=== PATIENT | female | born 1950 ===

== ENCOUNTER 2018-01-29 16:51 | Emergency (ER) | payer MEDICARE, MEDICAID ==
[2018-01-29 17:08] VITALS: BMI 37.8
[2018-01-29 17:09] VITALS: RESP 18; O2SAT 100
--- NOTE | 2018-01-29 17:15 | C.PDOC ---
History Of Present Illness 67 year old female presents to the ED for evaluation of diffuse abdominal pain for 3 days. Patient reports she feels she needs to have a bowel movement but is not able to. She has not had a bowel movement in 4 days. Admits to taking Miralax with no improvement. Denies fever, nausea, vomiting, diarrhea, chest pain, sob, syncope, urinary changes/frequency, dysuria, and any other associated symptoms. Son at bedside for translation. <Lydia Orona - Last Filed: 01/29/18 19:25> History Per: Patient History/Exam Limitations: no limitations Onset/Duration Of Symptoms: Days Current Symptoms Are (Timing): Still Present <Lydia Orona - Last Filed: 01/29/18 19:25> <Myra Membreno - Last Filed: 01/29/18 21:55> Time Seen by Provider: 01/29/18 17:15 Chief Complaint (Nursing): Abdominal Pain Past Medical History Reviewed: Historical Data, Nursing Documentation, Vital Signs Vital Signs: Last Vital Signs Temp 98.3 F 01/29/18 17:08 Pulse 56 L 01/29/18 17:08 Resp 18 01/29/18 17:08 BP 144/78 01/29/18 17:08 Pulse Ox 100 01/29/18 17:08 - Medical History PMH: Anxiety, Arthritis (R KNEE), Cardia Arrhythmia, Depression, Gastritis, HTN, Hypercholesterolemia, TIA Denies: Chronic Kidney Disease Surgical History: Cholecystectomy, Endoscopy - [facility] Procedures CORONAR ARTERIOGR-2 CATH (10/26/14) LT HEART ANGIOCARDIOGRAM (10/26/14) REPLACE OF R KNEE JT WITH SYNTH SUB, CEMENT, OPEN APPROACH (06/08/15) REVISION OR RELOCATION OF CARDIAC DEVICE POCKET (11/01/14) RT/LEFT HEART CARD CATH (10/26/14) Family History: States: Unknown Family Hx - Social History Hx Alcohol Use: No Hx Substance Use: No - Immunization History Hx Tetanus Toxoid Vaccination: Yes Hx Influenza Vaccination: Yes Hx Pneumococcal Vaccination: Yes <Lydia Orona - Last Filed: 01/29/18 19:25> Vital Signs: Last Vital Signs Temp 97.9 F 01/29/18 19:48 Pulse 61 01/29/18 19:48 Resp 18 01/29/18 19:48 BP 137/84 01/29/18 19:48 Pulse Ox 100 01/29/18 19:48 - [facility] Procedures CORONAR ARTERIOGR-2 CATH (10/26/14) LT HEART ANGIOCARDIOGRAM (10/26/14) REPLACE OF R KNEE JT WITH SYNTH SUB, CEMENT, OPEN APPROACH (06/08/15) REVISION OR RELOCATION OF CARDIAC DEVICE POCKET (11/01/14) RT/LEFT HEART CARD CATH (10/26/14) <Myra Membreno - Last Filed: 01/29/18 21:55> Review Of Systems Except As Marked, All Systems Reviewed And Found Negative. Constitutional: Negative for: Fever Gastrointestinal: Positive for: Abdominal Pain (diffuse.), Constipation (no bowel movement in 4 days. ). Negative for: Nausea, Vomiting, Diarrhea Genitourinary: Negative for: Dysuria, Frequency, Incontinence, Other (urinary changes.) <Lydia Orona - Last Filed: 01/29/18 19:25> Physical Exam - Physical Exam Appears: Well, Non-toxic, No Acute Distress Skin: Normal Color, Warm, Dry Head: Atraumatic, Normacephalic Eye(s): bilateral: Normal Inspection, EOMI Nose: Normal Oral Mucosa: Moist Neck: Normal ROM, Supple Chest: Symmetrical, No Deformity Cardiovascular: Rhythm Regular Respiratory: Normal Breath Sounds, No Rales, No Rhonchi, No Wheezing Gastrointestinal/Abdominal: Soft, Tenderness (diffuse.), No Distention, No Rebound, Other (obese) Back: No CVA Tenderness, No Vertebral Tenderness Neurological/Psych: Oriented x3, Normal Speech <Lyida Orona - Last Filed: 01/29/18 19:25> ED Course And Treatment - Laboratory Results Result Diagrams: 01/29/18 17:47 01/29/18 17:47 O2 Sat by Pulse Oximetry: 100 (RA) Pulse Ox Interpretation: Normal - Other Rad Obs XR X-Ray: Interpreted by Me, Viewed By Me Interpretation: (+) FOS , (-) air fluid levels Progress Note: Plan: Blood sent. X-ray Obstructive series. Urinalysis. XR evaluated, fleet enema and mag citrate ordered. Case endorsed to Dr Membreno pending re-evaluation. <Lydia Orona - Last Filed: 01/29/18 19:25> - Laboratory Results Result Diagrams: 01/29/18 17:47 01/29/18 17:47 Reevaluation Time: 21:50 Reassessment Condition: Improved (21:50 Patient had a bowel movement and feels better. Plan d/c home to f/u w/pcp. Patient agreeable w/POC.) <Myra Membreno - Last Filed: 01/29/18 21:55> Disposition - Disposition Disposition Time: 19:24 <BettyehuntercesarLydia - Last Filed: 01/29/18 19:25> Counseled Patient/Family Regarding: Studies Performed, Diagnosis, Need For Followup - Disposition Disposition Time: 21:53 - POA Present On Arrival: None <Myra Membreno - Last Filed: 01/29/18 21:55> - Disposition Disposition: HOME/ ROUTINE Condition: STABLE Additional Instructions: EMILY GERONIMO, thank you for letting us take care of you today. Your provider was Myra Membreno MD and you were treated for ABD PAIN. The emergency medical care you received today was directed at your acute symptoms. If you were prescribed any medication, please fill it and take as directed. It may take several days for your symptoms to resolve. Return to the Emergency Department if your symptoms worsen, do not improve, or if you have any other problems. Please contact your doctor or call one of the physicians/clinics you have been referred to that are listed on the Patient Visit Information form that is included in your discharge packet. Bring any paperwork you were given at discharge with you along with any medications you are taking to your follow up visit. Our treatment cannot replace ongoing medical care by a primary care provider outside of the emergency department. Thank you for allowing the [facility] team to be part of your care today. Instructions: Constipation, Adult (DC) Forms: [employer] (Rwandan), Gen Discharge Inst Rwandan Print Language: KISWAHILI - Clinical Impression Clinical Impression: Constipation - PA / INSPECTOR MISSILE / Resident Statement MD/DO has reviewed & agrees with the documentation as recorded. - Scribe Statement The provider has reviewed the documentation as recorded by the Scribe (Daly Marlow) All medical record entries made by the Scribe were at my direction and personally dictated by me. I have reviewed the chart and agree that the record accurately reflects my personal performance of the history, physical exam, medical decision making, and the department course for this patient. I have also personally directed, reviewed, and agree with the discharge instructions and disposition. <Lydia Orona - Last Filed: 01/29/18 19:25>
[2018-01-29 17:51] LABS: BASO % 0.6 % (0.0-2.0); EOS # 0.1 K/uL (0.0-0.7); EOS % 1.2 % (0.0-4.0); HEMOGLOBIN 13.3 g/dL (11.0-16.0); LYMPH # 1.7 K/uL (1.0-4.3); LYMPH % 25.4 % (20.0-40.0); MEAN CELL VOLUME 89.8 fL (81.0-99.0); MEAN CORPUSCULAR HEMOGLOBIN 29.9 pg (27.0-31.0); MEAN CORPUSCULAR HGB CONC 33.3 g/dL (33.0-37.0); MEAN PLATELET VOLUME 8.2 fL (7.2-11.7); MONO # 0.5 K/uL (0.0-0.8); MONO % 7.4 % (0.0-10.0); NEUT # 4.4 K/uL (1.8-7.0); NEUT % 65.4 % (50.0-75.0); NRBC % 0.1 % (0.0-2.0); RBC 4.46 Mil/uL (3.80-5.20); RED CELL DISTRIBUTION WIDTH 14.7 % (11.5-14.5); WHITE BLOOD COUNT 6.8 K/uL (4.8-10.8)
[2018-01-29] MEDS ORDERED: Magnesium Citrate Oral SOL (300 ml) PO ONE (18:07)
[2018-01-29 18:12] LABS: SQUAMOUS EPITHIAL < 1 /hpf (0-5); URINE BILIRUBIN NEGATIVE (NEGATIVE); URINE BLOOD NEGATIVE (NEGATIVE); URINE CLARITY Clear (Clear); URINE COLOR Yellow (YELLOW); URINE GLUCOSE (UA) 3+ mg/dL (Normal); URINE HYALINE CAST 0-2 /lpf (0-2); URINE LEUKOCYTE ESTERASE NEG Leu/uL (Negative); URINE PROTEIN 1+ mg/dL (NEGATIVE); URINE UROBILINOGEN NORMAL mg/dL (0.2-1.0)
[2018-01-29 18:14] LABS: ALB/GLOB RATIO 1.3 (1.0-2.1); ALBUMIN 4.2 g/dL (3.5-5.0); ALT/SGPT 19 U/L (9-52); AST/SGOT 20 U/L (14-36); BLOOD UREA NITROGEN 15 mg/dL (7-17); CALCIUM 8.8 mg/dl (8.6-10.4); GFR NON-AFRICAN AMERICAN > 60
[2018-01-29] MEDS ORDERED: Magnesium Citrate Oral SOL (300 ml) ONE (18:25)
[2018-01-29 22:13] VITALS: BP 150/85; PULSE 69; TEMP 98.7
--- NOTE | 2018-01-30 08:31 | RAD ---
Date of service: 01/29/2018 PROCEDURE: Radiographs of the chest and abdomen (obstructive series) HISTORY: pain COMPARISON: No prior. TECHNIQUE: AP radiograph of the chest, with upright and supine radiographs of the abdomen. FINDINGS: CHEST: Lungs: Clear. Cardiovascular: Cardiomegaly. No significant appearing pulmonary venous congestion. There is presence of aortic atherosclerotic calcification on x-ray. Pleura: No pleural fluid. No pneumothorax. Other findings: Cardiac monitoring device in place. ABDOMEN AND PELVIS: Bowel: Stool retention. No bowel obstruction appreciated. Right upper quadrant cholecystectomy clips Free air: None. Bones: Unremarkable. Other findings: None. IMPRESSION: No infiltrate. Stool retention. No bowel obstruction appreciated. Other findings as above.
== END 2018-01-29 22:14 | disposition home or self-care (01) ==
LOC: C.ER 16:51
DX: K59.00 Constipation, unspecified (principal)

== ENCOUNTER 2018-03-14 08:27 | Observation (INO) | payer MEDICARE, MEDICAID ==
[2018-03-04 11:44] VITALS: BMI 36.3
[2018-03-14] MEDS ORDERED: Propofol 10 mg/ml Inj (20 ML) ONE (10:04)
[2018-03-14] MEDS ORDERED: Lidocaine Hydrochloride 5 ML INJ ONE (10:04)
[2018-03-14] MEDS ORDERED: Midazolam 2 MG/2 ML VIAL ONE (10:04)
[2018-03-14] MEDS ORDERED: Iohexol 240 (50 ml) ONE (10:16)
[2018-03-14] MEDS ORDERED: cefTRIAXone 1 gm 1 GM/100 ML BAG IVPB ONE (10:16)
[2018-03-14] MEDS ORDERED: Lidocaine 2% Jelly (Uro-Jet) ONE (10:34)
--- NOTE | 2018-03-14 12:08 | PCM.SURG1 ---
Surgeon's Initial Post Op Note - Surgeon's Notes Surgeon: Mario Oseguera Corporate [employer] Intern: none Type of Anesthesia: General LMA Pre-Operative Diagnosis: Bladder mass Operative Findings: Multiple bladder tumors Post-Operative Diagnosis: Bladder cancer Operation Performed: cysto. bilat rtg pyelogram. cystogram. TUR-Bladder tumors. Tur-BN. EUA Specimen/Specimens Removed: urine. Bladder bx's/tumor Estimated Blood Loss: EBL {In ML}: 10 Blood Products Given: N/A Post-Op Condition: Good Date of Surgery/Procedure: 03/14/18 Time of Surgery/Procedure: 11:35
[2018-03-14] MEDS ORDERED: Lactated Ringer's 1,000 ML IV ONE (13:00)
[2018-03-14] MEDS ORDERED: Morphine 4 MG/ML VIAL ONE (13:17)
--- NOTE | 2018-03-14 13:24 | RAD ---
Date of service: 03/14/2018 HISTORY: BLADDER TUMOR COMPARISON: None available. FINDINGS: BOWEL: There is moderate amount of stool in the colon. The bowel gas pattern is nonobstructive BONES: Within normal limits for the patient's age. OTHER FINDINGS: None. IMPRESSION: Constipation. Nonspecific nonobstructive bowel gas pattern
--- NOTE | 2018-03-14 13:54 | CP.PCM.CON ---
History of Present Illness - History of Present Illness History of Present Illness: PGY-1 History and Physical for Dr. August's service Patient is a 67 year old obese female with past medical history of HTN, HLD, DM type II, CAD s/p SD presenting s/p transurethral resection of bladder tumor, cystoscopy b/l retrograde with cystogram under fluroscopy, bladder biopsy. Patient complained of diffuse abdominal pain/ constipation prior to arrival for multiple days, had CT abdomen/pelvis performed at another hospital that demonstrated bladder tumor. Currently, patient endorses mild lower abdominal/suprapubic tenderness as well as burning sensation to pubic area rated 6/10. No other acute somatic complaints. Denies fevers/chills, headaches, dizziness, chest pain, palpitations, sob, cough, abdominal pain, n/v/d/c, dysuria, or changes in stool. PMHx: HTN, HLD, DM type II, CAD s/p SD (2015) PSHx: loop recorder, cardiac cath, R TKA (05/2015), cholecystectomy, Allergies: NKDA Home Medications: reviewed ([facility]) Social Hx: denies alcohol, tobacco, illicit drug use FHx: unknown Review of Systems - Review of Systems All systems: reviewed and no additional remarkable complaints except Review of Systems: as per HPI Past Patient History - Past Medical History & Family History Past Medical History?: Yes - Past Social History Smoking Status: Never Smoked - CARDIAC Hx Cardiac Disorders: Yes Hx Cardia Arrhythmia: Yes Hx Heart Attack: Yes Hx Hypercholesterolemia: Yes Hx Hypertension: Yes Other/Comment: HX: LOOP RECORDER - NEUROLOGICAL Hx Neurological Disorder: Yes Hx Dizziness: Yes Hx Transient Ischemic Attacks (TIA): Yes Other/Comment: states mild memory problems pt. is AAOX3 - HEENT Hx HEENT Problems: Yes Hx Cataracts: Yes - ENDOCRINE/METABOLIC Hx Endocrine Disorders: Yes Hx Diabetes Mellitus Type 2: Yes - INTEGUMENTARY Hx Dermatological Problems: Yes Hx Romo: Yes (2014 OR 2015?-RIGHT BREAST FROM HOT WATER-NO SURGERY) - MUSCULOSKELETAL/RHEUMATOLOGICAL Hx Musculoskeletal Disorders: Yes Hx Arthritis: Yes (R KNEE) Hx Back Pain: Yes (LUMBAR) - GASTROINTESTINAL Hx Gastrointestinal Disorders: Yes Hx Gastritis: Yes Hx Gastroesophageal Reflux: Yes Other/Comment: chronic constipation - GENITOURINARY/GYNECOLOGICAL Hx Genitourinary Disorders: Yes Hx Urinary Tract Infection: Yes (TREATED REPEAT U/C 3 02/07) - PSYCHIATRIC Hx Psychophysiologic Disorder: Yes Hx Anxiety: Yes Hx Depression: Yes Hx Panic Symptoms: Yes - SURGICAL HISTORY Hx Surgeries: Yes Hx Angioplasty: Yes Hx Cardiac Catheterization: Yes Hx Section: Yes Hx Cholecystectomy: Yes Hx Joint Replacement: Yes (RIGHT KNEE) Hx Orthopedic Surgery: Yes (right knee) Other/Comment: HX: LOOP RECORDER - ANESTHESIA Hx Anesthesia: Yes Hx Anesthesia Reactions: No Hx Malignant Hyperthermia: No Meds Allergies/Adverse Reactions: Allergies Allergy/AdvReac Type Severity Reaction Status Date / Time shrimp Allergy Unknown "UNKNOWN" Verified 03/04/18 12:34 - Medications Medications: Current Medications Lactated Ringer's (Lactated Ringer's) 1,000 mls @ 100 mls/hr IV .Q10H CORTNEY Physical Exam - Constitutional Appears: Non-toxic, No Acute Distress - Head Exam Head Exam: ATRAUMATIC, NORMAL INSPECTION, NORMOCEPHALIC - Eye Exam Eye Exam: EOMI, Normal appearance Pupil Exam: NORMAL ACCOMODATION, PERRL - ENT Exam ENT Exam: Mucous Membranes Moist, Normal Exam - Neck Exam Neck exam: Positive for: Normal Inspection - Respiratory Exam Respiratory Exam: Clear to Auscultation Bilateral, NORMAL BREATHING PATTERN. absent: Accessory Muscle Use, Rales, Rhonchi, Wheezes, Respiratory Distress, S tridor - Cardiovascular Exam Cardiovascular Exam: REGULAR RHYTHM, +S1, +S2 - GI/Abdominal Exam GI & Abdominal Exam: Normal Bowel Sounds, Soft. absent: Distended, Firm, Guarding, Rebound, Rigid Additional comments: obese - Extremities Exam Extremities exam: Positive for: normal capillary refill, normal inspection, pedal pulses present. Negative for: calf tenderness, joint swelling, pedal edema - Neurological Exam Neurological exam: Alert, Oriented x3 - Psychiatric Exam Psychiatric exam: Normal Affect, Normal Mood - Skin Skin Exam: Dry, Intact, Normal Color, Warm Results - Vital Signs Recent Vital Signs: Last Vital Signs Temp 97.4 F L 03/14/18 13:00 Pulse 54 L 03/14/18 13:30 Resp 12 03/14/18 13:30 BP 155/70 H 03/14/18 13:30 Pulse Ox 99 03/14/18 13:30 - Labs Labs: Laboratory Results - last 24 hr 03/14/18 09:31 POC Glucose (mg/dL) 103 Assessment & Plan - Assessment and Plan (Free Text) Assessment: 67 year old obese female with PMHx of HTN, HLD, DM, CAD s/p SD, presenting s/p cysto and bladder tumor resection in the setting of diffuse abdominal pain. Plan: Bladder tumor -patient s/p transurethral resection of bladder tumor cysto
--- NOTE | 2018-03-14 14:44 | CP.PCM.HP ---
History of Present Illness - History of Present Illness History of Present Illness: PGY-1 History and Physical for Dr. August's service Patient is a 67 year old obese female with past medical history of HTN, HLD, DM type II, CAD s/p HI presenting s/p transurethral resection of bladder tumor, cystoscopy b/l retrograde with cystogram under fluroscopy, bladder biopsy. Patient complained of diffuse abdominal pain/ constipation prior to arrival for multiple days, had CT abdomen/pelvis performed at another hospital that demonstrated bladder tumor. Currently, patient endorses mild lower abdominal/suprapubic tenderness as well as burning sensation to pubic area rated 6/10. No other acute somatic complaints. Denies fevers/chills, headaches, dizziness, chest pain, palpitations, sob, cough, abdominal pain, n/v/d/c, dysuria, or changes in stool. PMHx: HTN, HLD, DM type II, CAD s/p HI (2015) PSHx: loop recorder, cardiac cath, R TKA (05/2015), cholecystectomy, Allergies: NKDA Home Medications: reviewed ([facility]) Social Hx: denies alcohol, tobacco, illicit drug use FHx: unknown Present on Admission - Present on Admission Any Indicators Present on Admission: Yes Review of Systems - Review of Systems All systems: reviewed and no additional remarkable complaints except Review of Systems: as per HPI Past Patient History - Past Medical History & Family History Past Medical History?: Yes - Past Social History Smoking Status: Never Smoked - CARDIAC Hx Cardiac Disorders: Yes Hx Cardia Arrhythmia: Yes Hx Heart Attack: Yes Hx Hypercholesterolemia: Yes Hx Hypertension: Yes Other/Comment: HX: LOOP RECORDER - NEUROLOGICAL Hx Neurological Disorder: Yes Hx Dizziness: Yes Hx Transient Ischemic Attacks (TIA): Yes Other/Comment: states mild memory problems pt. is AAOX3 - HEENT Hx HEENT Problems: Yes Hx Cataracts: Yes - ENDOCRINE/METABOLIC Hx Endocrine Disorders: Yes Hx Diabetes Mellitus Type 2: Yes - INTEGUMENTARY Hx Dermatological Problems: Yes Hx Romo: Yes (2014 OR 2015?-RIGHT BREAST FROM HOT WATER-NO SURGERY) - MUSCULOSKELETAL/RHEUMATOLOGICAL Hx Musculoskeletal Disorders: Yes Hx Arthritis: Yes (R KNEE) Hx Back Pain: Yes (LUMBAR) - GASTROINTESTINAL Hx Gastrointestinal Disorders: Yes Hx Gastritis: Yes Hx Gastroesophageal Reflux: Yes Other/Comment: chronic constipation - GENITOURINARY/GYNECOLOGICAL Hx Genitourinary Disorders: Yes Hx Urinary Tract Infection: Yes (TREATED REPEAT U/C 3 02/07) - PSYCHIATRIC Hx Psychophysiologic Disorder: Yes Hx Anxiety: Yes Hx Depression: Yes Hx Panic Symptoms: Yes - SURGICAL HISTORY Hx Surgeries: Yes Hx Angioplasty: Yes Hx Cardiac Catheterization: Yes Hx Section: Yes Hx Cholecystectomy: Yes Hx Joint Replacement: Yes (RIGHT KNEE) Hx Orthopedic Surgery: Yes (right knee) Other/Comment: HX: LOOP RECORDER - ANESTHESIA Hx Anesthesia: Yes Hx Anesthesia Reactions: No Hx Malignant Hyperthermia: No Meds Allergies/Adverse Reactions: Allergies Allergy/AdvReac Type Severity Reaction Status Date / Time shrimp Allergy Unknown "UNKNOWN" Verified 03/04/18 12:34 Physical Exam - Constitutional Appears: Non-toxic, No Acute Distress - Head Exam Head Exam: ATRAUMATIC, NORMAL INSPECTION, NORMOCEPHALIC - Eye Exam Eye Exam: EOMI, Normal appearance, PERRL Pupil Exam: NORMAL ACCOMODATION - ENT Exam ENT Exam: Mucous Membranes Moist, Normal Exam - Neck Exam Neck exam: Positive for: Full Rom, Normal Inspection - Respiratory Exam Respiratory Exam: Clear to Auscultation Bilateral, NORMAL BREATHING PATTERN. absent: Accessory Muscle Use, Rales, Rhonchi, Wheezes, Respiratory Distress, Stridor - Cardiovascular Exam Cardiovascular Exam: REGULAR RHYTHM, +S1, +S2 - GI/Abdominal Exam GI & Abdominal Exam: Distended, Normal Bowel Sounds, Soft, Tenderness (mild suprapubic tenderness). absent: Firm, Guarding, Rebound Additional comments: obese - Extremities Exam Extremities exam: Positive for: normal capillary refill, normal inspection, pedal pulses present. Negative for: calf tenderness, pedal edema - Neurological Exam Neurological exam: Alert, Oriented x3 - Psychiatric Exam Psychiatric exam: Normal Affect, Normal Mood - Skin Skin Exam: Dry, Intact, Normal Color, Warm Results - Vital Signs Recent Vital Signs: Last Vital Signs Temp 97.4 F L 03/14/18 13:00 Pulse 60 03/14/18 14:00 Resp 11 L 03/14/18 14:00 BP 119/80 03/14/18 14:00 Pulse Ox 99 03/14/18 14:00 - Labs Labs: Laboratory Results - last 24 hr 03/14/18 09:31 POC Glucose (mg/dL) 103 Assessment & Plan - Assessment and Plan (Free Text) Assessment: 67 year old obese female with PMHx of HTN, HLD, DM, CAD s/p HI presenting s/p bladder tumor removal and cysto in the setting of diffuse abdomi nal pain Plan: Bladder tumor -patient s/p transurethral tumor removal, bladder bx, cysto -Urology (Dr. Mario Oseguera) on board -patient s/p 1 dose rocephin -pt to receive 1 more dose of rocephin tomorrow, d/c tomorrow AM with hendricks and outpatient follow-up -LR @ 100 cc/hr -rocephin 2gm IVPB X1 tomorrow AM -morphine 4 mg q4h prn Hx HTN -BP under control, continue to monitor HLD -Crestor 5 mg PO HS DM -restart home metformin -ISS medium -accuchecks ACHS -hypoglycemic protocol -continue to monitor PPx, Diet, Disposition -DVT ppx: scds -GI ppx: protonix -Diet: heart healthy -Dispo: likely d/c tomorrow AM with urology outpatient f/u Case discussed with Dr. Mariangel Romero DO, PGY-1
[2018-03-14] MEDS: POLYETHYLENE GLYCOL 3350 17 GM/Dose PACKET PO SCH (15:24)
[2018-03-14] MEDS ORDERED: Dextrose 50% SYRINGE Inj (50 ml) IV PRN (15:25)
[2018-03-14] MEDS ORDERED: Glucagon Recombinant 1 mg Inj IM PRN (15:25)
[2018-03-14] MEDS: Pantoprazole 40 mg EC Tab PO SCH (15:25)
[2018-03-14 16:36] VITALS: RESP 20
[2018-03-14] MEDS: Morphine 4 MG/ML VIAL IV PRN (19:20)
[2018-03-14] MEDS: (Novolin R) Insulin Human Regular 100 units/ml vial SC SCH ×2 (19:22→22:03)
[2018-03-14] MEDS: Lactated Ringer's 1,000 ML IV SCH (22:01)
[2018-03-15] MEDS: Morphine 4 MG/ML VIAL IV PRN (06:42)
[2018-03-15] MEDS: (Novolin R) Insulin Human Regular 100 units/ml vial SC SCH ×2 (07:37→12:51)
[2018-03-15] MEDS ORDERED: cefTRIAXone 2 GM in Sodium Chloride 0.9% 100 ML IVPB ONE (08:00)
[2018-03-15 08:12] LABS: MEAN CORPUSCULAR HEMOGLOBIN 30.7 pg (27.0-31.0); MEAN CORPUSCULAR HGB CONC 33.3 g/dL (33.0-37.0); MEAN PLATELET VOLUME 9.5 fL (7.2-11.7); RBC 3.92 Mil/uL (3.80-5.20); RED CELL DISTRIBUTION WIDTH 14.9 % (11.5-14.5); WHITE BLOOD COUNT 4.3 K/uL (4.8-10.8)
[2018-03-15 08:21] LABS: BLOOD UREA NITROGEN 9 mg/dL (7-17); CALCIUM 8.6 mg/dl (8.6-10.4); GFR NON-AFRICAN AMERICAN > 60
--- NOTE | 2018-03-15 08:26 | CP.PCM.DIS ---
Provider - Provider Date of Admission: 03/14/18 12:59 Attending physician: Carla Queen DO Time Spent in preparation of Discharge (in minutes): 40 Hospital Course - Lab Results Lab Results: Most Recent Lab Values WBC 4.3 K/uL (4.8-10.8) L 03/15/18 07:58 RBC 3.92 Mil/uL (3.80-5.20) 03/15/18 07:58 Hgb 12.0 g/dL (11.0-16.0) 03/15/18 07:58 Hct 36.1 % (34.0-47.0) 03/15/18 07:58 MCV 92.0 fL (81.0-99.0) D 03/15/18 07:58 MCH 30.7 pg (27.0-31.0) 03/15/18 07:58 MCHC 33.3 g/dL (33.0-37.0) 03/15/18 07:58 RDW 14.9 % (11.5-14.5) H 03/15/18 07:58 Plt Count 242 K/uL (130-400) 03/15/18 07:58 MPV 9.5 fL (7.2-11.7) 03/15/18 07:58 Sodium 136 mmol/L (132-148) 03/15/18 08:01 Potassium 3.7 mmol/L (3.6-5.2) 03/15/18 08:01 Chloride 104 mmol/L (98-107) 03/15/18 08:01 Carbon Dioxide 26 mmol/L (22-30) 03/15/18 08:01 Anion Gap 10 (10-20) 03/15/18 08:01 BUN 9 mg/dL (7-17) 03/15/18 08:01 Creatinine 0.6 mg/dL (0.7-1.2) L 03/15/18 08:01 Est GFR ( Amer) > 60 03/15/18 08:01 Est GFR (Non-Af Amer) > 60 03/15/18 08:01 POC Glucose (mg/dL) 102 mg/dL (65-110) 03/14/18 21:25 Random Glucose 95 mg/dL (65-105) 03/15/18 08:01 Calcium 8.6 mg/dl (8.6-10.4) 03/15/18 08:01 - Hospital Course Hospital Course: HPI: Patient is a 67 year old obese female with past medical history of hypertension, hyperlipidemia, diabetes mellitus, coronary artery disease status- post myocardial infarction presenting status-post transurethral resection of bladder tumor, cystoscopy retrograde with cystogram under fluroscopy, bladder biopsy. Patient complained of diffuse abdominal pain/constipation prior to arrival for multiple days, had CT abdomen/pelvis performed at another hospital that demonstrated bladder tumor. Currently, patient endorses mild lower abdom inal/suprapubic tenderness as well as burning sensation to pubic area rated 6/10. No other acute somatic complaints. Denies fevers/chills, headaches, dizziness, chest pain, palpitations, shortness of breath, cough, abdominal pain, nausea/vomiting/diarrhea, dysuria, or changes in stool. During hospital course course: Patient received 1 dose of rocephin on admission and one additional dose the ne xt morning, as per Urology recs (Dr. Mario Oseguera). Patient was placed on lactated ringers and given morphine for pain control as needed. Home medications were restarted and patient was placed on insulin sliding scale with glycemic monitoring. Blood pressure was under control during hospital course. Patient denied any acute somatic complaints aside from mild lower abdominal pain/suprapubic tenderness, pain well controlled with meds. Patient remained afebrile during hospital course, with no leukocytosis noted. Vitals were within normal limits. Patient is medically stable for discharge to home, as per Dr. August. Per Urology recs (Dr. Mario Oseguera) endorsed to Dr. August, patient to be discharged home with indwelling hendricks. She is instructed to follow up with Dr. Oseguera within 1 week of discharge for follow- up. Please also follow up with your primary care provider within 1-2 weeks of discharge for continued care and follow-up. Patient to continue all medications as prescribed. Patient has been provided the following scripts: Levaquin 500 mg PO once daily for a total of 7 days, 7 tablets Percocet 1 tablet every 4 hours as needed, 12 tablets Please return to the ED immediately if symptoms worsen. Thank you! - Date & Time of H&P Date of H&P: 03/15/18 Time of H&P: 12:15 Discharge Exam - Head Exam Head Exam: ATRAUMATIC, NORMAL INSPECTION, NORMOCEPHALIC - Eye Exam Eye Exam: EOMI, Normal appearance, PERRL Pupil Exam: NORMAL ACCOMODATION - ENT Exam ENT Exam: Mucous Membranes Moist, Normal Exam - Neck Exam Neck exam: Full Rom, Normal Inspection - Respiratory Exam Respiratory Exam: Clear to PA & Lateral, NORMAL BREATHING PATTERN, UNREMARKABLE. absent: Accessory Muscle Use, Rales, Rhonchi, Wheezes, Respiratory Distress, Stridor - Cardiovascular Exam Cardiovascular Exam: REGULAR RHYTHM, +S1, +S2 - GI/Abdominal Exam GI & Abdominal Exam: Normal Bowel Sounds, Soft, Tenderness (mild TTP suprapubic region), Unremarkable. absent: Distended, Firm, Guarding, Rebound - Exam Additional comments: hendricks catheter in place draining clear yellow urine adequately - Extremities Exam Extremities exam: normal capillary refill, normal inspection, pedal pulses present - Back Exam Back exam: NORMAL INSPECTION - Neurological Exam Neurological exam: Alert, Oriented x3 - Psychiatric Exam Psychiatric exam: Normal Affect, Normal Mood - Skin Skin Exam: Dry, Intact, Normal Color, Warm Discharge Plan - Follow Up Plan Condition: GOOD Disposition: HOME/ ROUTINE
[2018-03-15 08:30] VITALS: BP 138/77; PULSE 56; TEMP 98; O2SAT 93
[2018-03-15] MEDS: POLYETHYLENE GLYCOL 3350 17 GM/Dose PACKET PO SCH (09:25)
[2018-03-15] MEDS: Pantoprazole 40 mg EC Tab PO SCH (09:25)
[2018-03-15] MEDS: Lactated Ringer's 1,000 ML IV SCH (09:44)
--- NOTE | 2018-03-17 12:11 | RAD ---
Date of service: 03/14/2018 PROCEDURE: Intraoperative Fluoroscopy. HISTORY: BLADDER TUMOR FINDINGS: Fluoroscopic assistance was provided for bilateral retrograde study. Please refer to the operative report from Dr. LAGUNAS, [place]. Total fluoroscopic time (continuous mode) utilized during the procedure 13.5 seconds. Dose report: DLP [id number] (mGy/m2)
--- NOTE | 2018-03-17 14:10 | OP ---
PROCEDURE DATE: 03/14/2018 PREOPERATIVE DIAGNOSIS: Bladder tumor. POSTOPERATIVE DIAGNOSIS: Multiple bladder tumors. PROCEDURE: Cystoscopy. Bilateral retrograde pyelogram. Transurethral resection of multiple bladder tumors. Exam under anesthesia. OPERATING SURGEON: Milagros Oseguera MD. DESCRIPTION OF PROCEDURE: Procedure as follows. The patient received perioperative antibiotics. The patient was placed in lithotomy position. Anesthesia was provided by the anesthesiologist. The genitalia prepped and draped in sterile fashion. A 22-[place] cystoscope sheath was introduced under direct vision. Urethra and bladder were inspected with 32 and 72 lenses. FINDINGS: The urethra was noted to be of normal caliber to the passage of 22-[place] cystoscope sheath. The urine was sent for bacteriologic and cytologic examination. The bladder demonstrated mild trabeculation. There was no bladder stone. There were noted to be multiple bladder tumors which appeared solid. The tumors involved the right lateral wall of the bladder and the right posterior wall of the bladder. They were lateral to the ureteral orifice and posterior to the ureteral orifice. The largest tumor was approximately 3.5 cm in size. There are multiple small tumors ranging in size from 0.5 cm to 2.5 cm. Occlusive tip retrograde ureteral pyelogram was performed. The iodinated contrast dye was instilled via cone-tip catheter into each ureteral orifice. The ureters and kidneys were viewed sequentially with fluoroscopy. There was no evidence of filling defect or obstruction within the ureters or collecting systems. There was excellent drainage noted on the post drainage films. The cystoscope and sheath removed. The 26-[place] continuous flow resectoscope was inserted. Urethral dilation was necessary and was performed with the Bonny sounds, to allow introduction of the resectoscope. The resectoscope was inserted. Resection of the bladder tumors were performed. Each tumor was resected individually. The resection was begun using the resectoscope on the most distal tumor. Thereafter, the more proximal tumors on the right lateral wall were resected. The base of the tumor was sent separately for pathologic examination. Fulguration was performed after each tumor was resected. The large tumor was noted more proximally and posteriorly. The tumor was fully resected as well. There were small satellite tumors which was separate from this largest tumor which were resected as well. The specimens were sent for pathologic examination. The bladder was reinspected. There was no residual tumor visible. There was no bleeding noted. The resectoscope and sheath removed. Hugo catheter was inserted. Bladder drainage was clear. Exam under anesthesia/bimanual examination was performed. There was no abnormal pelvic mass fixation or induration. There was no adnexal mass. There was no bladder induration or palpable bladder mass. The patient was returned to supine position. The patient tolerated the procedure without complication. The patient was transferred to the PACU in satisfactory condition. Milagros Oseguera MD cc: Woodrow Buenrostro MD
== END 2018-03-15 14:51 | disposition home or self-care (01) ==
LOC: C.SDS 08:27 → INTOOBSV 12:59 → C.9E 12:59 → UNDOADMIN 13:49 → C.9E 13:49 → C.9S 13:51 → C.9E 13:51 → C.9S 14:40 → C.6T 14:40
PROVIDERS: ADMIT Hospitalist; ATTEND Hospitalist
DX: C67.9 Malignant neoplasm of bladder, unspecified (principal); I10 Essential (primary) hypertension; E78.5 Hyperlipidemia, unspecified; E11.9 Type 2 diabetes mellitus without complications; E66.9 Obesity, unspecified; E78.00 Pure hypercholesterolemia, unspecified; I25.10 Atherosclerotic heart disease of native coronary artery without angina pectoris; K21.9 Gastro-esophageal reflux disease without esophagitis; I25.2 Old myocardial infarction; K59.00 Constipation, unspecified; Z86.73 Personal history of transient ischemic attack (TIA), and cerebral infarction without residual deficits; Z87.440 Personal history of urinary (tract) infections; Z90.49 Acquired absence of other specified parts of digestive tract; Z96.651 Presence of right artificial knee joint
CPT/HCPCS: 36415; 52235; 74018; 76000; 80048; 82948; 85027; 87086; 88104; 88305; G0378; J0696; J2270; J7120

== ENCOUNTER 2018-04-22 08:54 | Outpatient (CLI) | payer MEDICARE, MEDICAID | END 2018-04-22 08:55 | disposition home or self-care (01) | LOC: C.PAT 08:54 | DX: C67.9 Malignant neoplasm of bladder, unspecified (principal) ==

== ENCOUNTER 2018-05-05 05:51 | Day surgery (SDC) | payer MEDICARE, MEDICAID ==
[2018-04-22 09:13] VITALS: BMI 36.0
[2018-05-05] MEDS ORDERED: Propofol 10 mg/ml Inj (20 ML) ONE (07:36)
[2018-05-05] MEDS ORDERED: Iohexol 240 (50 ml) ONE (07:55)
[2018-05-05] MEDS ORDERED: cefTRIAXone 1 gm 1 GM/100 ML BAG IVPB ONE (07:55)
[2018-05-05] MEDS ORDERED: Lactated Ringer's 1,000 ML IV SCH (08:45)
[2018-05-05] MEDS ORDERED: Lactated Ringer's 1,000 ML IV ONE (08:45)
--- NOTE | 2018-05-05 09:33 | PCM.SURG1 ---
Surgeon's Initial Post Op Note - Surgeon's Notes Surgeon: Mario Oseguera Smoking Pipe Liner: none Type of Anesthesia: General Endo Pre-Operative Diagnosis: Hx of bladder ca Operative Findings: bladder ca Post-Operative Diagnosis: same Operation Performed: cysto,. bladder bx's and fulguration. TUR-BT's. EUA Specimen/Specimens Removed: bladder bx. bladder tumor Estimated Blood Loss: EBL {In ML}: 0 Blood Products Given: N/A Post-Op Condition: Good Date of Surgery/Procedure: 05/05/18 Time of Surgery/Procedure: 09:00
[2018-05-05 09:50] LABS: SQUAMOUS EPITHIAL < 1 /hpf (0-5); URINE BILIRUBIN NEGATIVE (NEGATIVE); URINE BLOOD NEGATIVE (NEGATIVE); URINE CLARITY Clear (Clear); URINE COLOR Straw (YELLOW); URINE GLUCOSE (UA) NORMAL (Normal); URINE LEUKOCYTE ESTERASE NEG Leu/uL (Negative); URINE PROTEIN NEGATIVE (NEGATIVE); URINE UROBILINOGEN NORMAL mg/dL (0.2-1.0)
[2018-05-05 11:11] VITALS: BP 159/76; PULSE 57; RESP 18; TEMP 98; O2SAT 99
--- NOTE | 2018-05-08 01:00 | OP ---
PROCEDURE DATE: 05/05/2018 PREOPERATIVE DIAGNOSIS: History of bladder carcinoma, high grade and stage T1. POSTOPERATIVE DIAGNOSES: History of bladder carcinoma, high grade and stage T1. Abnormal bladder tissue, possible recurrent or persistent bladder cancer. PROCEDURES: Cystoscopy. Bladder biopsy and fulguration. Transurethral resection of bladder tumor. OPERATING SURGEON: Milagros Oseguera MD Also exam under anesthesia. PROCEDURE FOLLOWS: The patient was placed in lithotomy position. Perioperative antibiotics were administered. Anesthesia was provided by the anesthesiologist. A 22-[place] Islander cystoscope sheath was introduced with obturator. Urine was sent for bacteriologic and cytologic examination. The urethra and bladder were inspected with 30-degree and 70-degree lenses. FINDINGS: The ureteral orifices were identified and were in normal position and shape. There was abnormal tissue located on the right lateral wall of the bladder. The tissue was erythematous and raised. There were some papillary areas suggestive of bladder carcinoma located at the more proximal aspects. Biopsy was performed with cold cup biopsy forceps of numerous sites. These were identified separately and sent for pathologic examination. The cystoscope and sheath were removed. A 26-[place] Island[place] continuous flow resectoscope sheath was introduced with obturator. The larger tumor area was resected. Deep dissection was performed. The base of the tumor was sent separately for pathologic examination. The bladder was reinspected. Hemostasis was complete. There were no other areas of abnormal mucosa. Biopsies were also obtained from normal-appearing mucosa with cold cup biopsy forceps at multiple sites. These were labeled separately for the pathologic analysis. The resectoscope and sheath were removed. Hugo catheter was inserted. Bladder drainage was clear. Exam under anesthesia was performed. There was no abnormal pelvic mass fixation or induration. The patient tolerated the procedure without complication. Milagros Oseguera MD
== END 2018-05-05 13:36 | disposition home or self-care (01) ==
LOC: C.SDS 05:51
PROVIDERS: ATTEND Urology
DX: C67.2 Malignant neoplasm of lateral wall of bladder (principal)
CPT/HCPCS: 52234; 81001; 82948; 87086; 88104; 88305; J0696; J2270; J7120

== ENCOUNTER 2018-05-12 12:20 | Emergency (ER) | payer MEDICARE, MEDICAID ==
[2018-05-12 12:20] VITALS: BMI 36.0
--- NOTE | 2018-05-12 13:00 | C.PDOC ---
History Of Present Illness 67 y/o female,w/PMhx of bladder cancer, HTN, and hypercholesterolemia, presents to the ER complaining of suprapubic abdominal pain which has been present since yesterday. Patient states that she had surgery for bladder cancer performed by Dr. Mario Oseguera on 05/05/18. Patient reports that she followed up with on 05/08/18.She notes that she has dizziness, nausea and she vomited x1 in the morning today. She also notes that she has dysuria and hematuria.Denies having fever,chills, CP, and SOB. Time Seen by Provider: 05/12/18 12:51 Chief Complaint (Nursing): Abdominal Pain History Per: Patient History/Exam Limitations: no limitations Onset/Duration Of Symptoms: Days Current Symptoms Are (Timing): Still Present Severity: Moderate Location Of Pain/Discomfort: Suprapubic Associated Symptoms: Nausea, Vomiting, Urinary Symptoms. denies: Fever, Chills, Diarrhea Past Medical History Reviewed: Historical Data, Nursing Documentation, Vital Signs Vital Signs: Last Vital Signs Temp 97.6 F 05/12/18 12:21 Pulse 54 L 05/12/18 12:21 Resp 18 05/12/18 12:21 BP 151/92 H 05/12/18 12:21 Pulse Ox 100 05/12/18 12:21 - Medical History PMH: Anxiety, Arthritis (R KNEE), Cardia Arrhythmia, Depression, Gastritis, HTN, Hypercholesterolemia, Sleep Apnea (USES C-PAP), TIA Surgical History: Cholecystectomy, Endoscopy - [facility] Procedures CORONAR ARTERIOGR-2 CATH (10/26/14) LT HEART ANGIOCARDIOGRAM (10/26/14) REPLACE OF R KNEE JT WITH SYNTH SUB, CEMENT, OPEN APPROACH (06/08/15) REVISION OR RELOCATION OF CARDIAC DEVICE POCKET (11/01/14) RT/LEFT HEART CARD CATH (10/26/14) Family History: States: No Known Family Hx - Social History Hx Alcohol Use: No Hx Substance Use: No - Immunization History Hx Tetanus Toxoid Vaccination: Yes Hx Influenza Vaccination: Yes Hx Pneumococcal Vaccination: Yes Review Of Systems Except As Marked, All Systems Reviewed And Found Negative. Constitutional: Negative for: Fever, Chills Cardiovascular: Negative for: Chest Pain Respiratory: Negative for: Shortness of Breath Gastrointestinal: Positive for: Nausea, Vomiting, Abdominal Pain. Negative for: Diarrhea Genitourinary: Negative for: Dysuria, Hematuria Neurological: Positive for: Dizziness. Negative for: Headache Physical Exam - Physical Exam Appears: Non-toxic, No Acute Distress Skin: Normal Color, Warm, Dry Head: Atraumatic, Normacephalic Eye(s): bilateral: Normal Inspection Nose: Normal Oral Mucosa: Moist Neck: Supple Chest: Symmetrical Cardiovascular: Rhythm Regular Respiratory: Normal Breath Sounds, No Rales, No Rhonchi, No Wheezing Gastrointestinal/Abdominal: Soft, Tenderness (bilateral suprapubic tenderness), No Guarding, No Rebound Back: No CVA Tenderness Neurological/Psych: Oriented x3, Normal Speech, Normal Cognition, Normal Sensation Gait: Steady ED Course And Treatment - Laboratory Results Result Diagrams: 05/12/18 14:08 05/12/18 14:08 O2 Sat by Pulse Oximetry: 100 (RA) Pulse Ox Interpretation: Normal Medical Decision Making Medical Decision Makin:42: Case was discussed with Dr. Milagros Oseguera, who requests CT A/P scan with IV contrast. CT A/P ordered. Morphine given CT A/P revealed irregularly thick-walled urinary bladder with adjacent inflammatory/change. Superimposed infection not excluded. UA positive 18:[address] Oseguera, who agrees with discharging patient home and following up with him in 1-2 days in the office. Disposition Counseled Patient/Family Regarding: Studies Performed, Diagnosis, Need For Followup - Disposition Referrals: Milagros Oseguera MD [Staff Provider] - Disposition: HOME/ ROUTINE Disposition Time: 19:07 Condition: IMPROVED Additional Instructions: EMILY GERONIMO, thank you for letting us take care of you today. Your provider was Glenroy Dang MD and you were treated for BLADDER PAIN. The emergency medical care you received today was directed at your acute symptoms. If you were prescribed any medication, please fill it and take as directed. It may take several days for your symptoms to resolve. Return to the Emergency Department if your symptoms worsen, do not improve, or if you have any other problems. Please contact your doctor or call one of the physicians/clinics you have been referred to that are listed on the Patient Visit Information form that is included in your discharge packet. Bring any paperwork you were given at discharge with you along with any medications you are taking to your follow up visit. Our treatment cannot replace ongoing medical care by a primary care provider outside of the emergency department. Thank you for allowing the [facility] team to be part of your care today. Prescriptions: Acetaminophen [Tylenol] 650 mg PO TID PRN #30 capsule PRN Reason: Pain, Moderate (4-7) Nitrofurantoin Macrocrystals [Macrobid] 100 mg PO BID #10 cap Oxybutynin [Ditropan Tab] 5 mg PO BID #20 tab Phenazopyridine [Pyridium] 200 mg PO TID #6 tab Instructions: Urinary Tract Infection, Adult (DC) Forms: [employer] (Greenlandic) Print Language: YAKUT - Clinical Impression Clinical Impression: UTI (urinary tract infection), Bladder cancer - PA / BUCKET TURNER / Resident Statement MD/DO has reviewed & agrees with the documentation as recorded. - Scribe Statement The provider has reviewed the documentation as recorded by the Orlinibe Nini Foley Provider Attestation All medical record entries made by the Scribe were at my direction and personally dictated by me. I have reviewed the chart and agree that the record accurately reflects my personal performance of the history, physical exam, medical decision making, and the department course for this patient. I have also personally directed, reviewed, and agree with the discharge instructions and disposition.
[2018-05-12] MEDS ORDERED: Morphine 4 MG/ML VIAL IV ONE (13:39)
[2018-05-12 14:13] LABS: BASO # 0.1 K/uL (0.0-0.2); BASO % 0.9 % (0.0-2.0); EOS # 0.2 K/uL (0.0-0.7); EOS % 3.6 % (0.0-4.0); HEMOGLOBIN 11.6 g/dL (11.0-16.0); LYMPH # 1.6 K/uL (1.0-4.3); LYMPH % 26.7 % (20.0-40.0); MEAN CELL VOLUME 93.6 fL (81.0-99.0); MEAN CORPUSCULAR HEMOGLOBIN 29.9 pg (27.0-31.0); MEAN PLATELET VOLUME 9.1 fL (7.2-11.7); MONO # 0.5 K/uL (0.0-0.8); MONO % 8.7 % (0.0-10.0); NEUT # 3.7 K/uL (1.8-7.0); NEUT % 60.1 % (50.0-75.0); RBC 3.89 Mil/uL (3.80-5.20); RED CELL DISTRIBUTION WIDTH 13.8 % (11.5-14.5)
[2018-05-12 14:16] LABS: WHITE BLOOD COUNT 6.2 K/uL (4.8-10.8)
[2018-05-12 14:18] LABS: SQUAMOUS EPITHIAL < 1 /hpf (0-5); URINE BILIRUBIN NEGATIVE (NEGATIVE); URINE BLOOD 1+ (NEGATIVE); URINE CLARITY Clear (Clear); URINE COLOR Straw (YELLOW); URINE GLUCOSE (UA) NORMAL (Normal); URINE LEUKOCYTE ESTERASE 3+ Leu/uL (Negative); URINE PROTEIN NEGATIVE (NEGATIVE); URINE UROBILINOGEN NORMAL mg/dL (0.2-1.0)
[2018-05-12 14:24] LABS: ALB/GLOB RATIO 1.5 (1.0-2.1); ALT/SGPT 16 U/L (9-52); AST/SGOT 16 U/L (14-36); BLOOD UREA NITROGEN 12 mg/dL (7-17); CALCIUM 8.8 mg/dl (8.6-10.4); GFR NON-AFRICAN AMERICAN > 60
[2018-05-12 15:00] VITALS: O2SAT 100
[2018-05-12] MEDS ORDERED: Iohexol 240 (50 ml) PO ONE (15:04)
[2018-05-12] MEDS ORDERED: Iohexol 240 (50 ml) ONE (15:07)
[2018-05-12 15:43] VITALS: TEMP 98.2
[2018-05-12 18:07] VITALS: RESP 18
--- NOTE | 2018-05-12 18:30 | CT ---
PROCEDURE: CT Abdomen and Pelvis without IV contrast. HISTORY: suprapubic pain COMPARISON: None available TECHNIQUE: Contiguous axial images of the abdomen and pelvis. Oral contrast was administered. No IV contrast given. Coronal and Sagittal reformats generated and reviewed. Radiation dose: Total exam DLP = 1580.83 mGy-cm. This CT exam was performed using one or more of the following dose reduction techniques: Automated exposure control, adjustment of the mA and/or kV according to patient size, and/or use of iterative reconstruction technique. FINDINGS: Examination limited by habitus. There is limited evaluation of the solid organs without the administration of IV contrast. LOWER THORAX: No visible consolidation, pleural effusion, or pneumothorax. Visualized portions of the heart appear within normal limits of size. Small hiatal hernia. LIVER: Hepatomegaly. GALLBLADDER AND BILE DUCTS: Cholecystectomy. PANCREAS: Diffuse fatty infiltration of the pancreas. SPLEEN: Unremarkable. ADRENALS: Unremarkable. KIDNEYS AND URETERS: No hydronephrosis or obstructing renal calculus. BLADDER: Asymmetric or irregularly thick-walled urinary bladder. Associated or adjacent stranding at the level of the urinary bladder. REPRODUCTIVE: Uterus is present. APPENDIX: The presumed appendix appears within normal limits of caliber. No secondary signs of acute appendicitis identified. BOWEL: The stomach is nondistended. The bowel loops appear within normal limits of caliber without evidence of intestinal obstruction. Diverticulosis without CT evidence of acute diverticulitis. PERITONEUM: No significant free fluid. No definite free air. LYMPH NODES: No bulky lymphadenopathy identified. VASCULATURE: Mild scattered atherosclerotic calcifications. No aortic aneurysm. BONES: Osseous demineralization. Degenerative changes. OTHER FINDINGS: Two fat containing ventral wall hernias. IMPRESSION: Irregularly thick-walled urinary bladder with adjacent inflammatory/change. Recommend correlation with urinalysis and clinical history. By report patient has history of bladder cancer status post surgery. Superimposed infection not excluded. Additional incidental findings as above.
[2018-05-12 19:25] VITALS: BP 146/82; PULSE 82
== END 2018-05-12 19:25 | disposition home or self-care (01) ==
LOC: C.ER 12:20
DX: N39.0 Urinary tract infection, site not specified (principal); C67.9 Malignant neoplasm of bladder, unspecified; I10 Essential (primary) hypertension; E78.00 Pure hypercholesterolemia, unspecified
CPT/HCPCS: 74176; 80053; 81001; 85025; 87086; 96374; 99285; J2270; Q9966

== ENCOUNTER 2018-06-20 06:26 | Observation (INO) | payer MEDICARE, MEDICAID ==
[2018-04-22 09:27] VITALS: BMI 36.0
[2018-06-20] MEDS ORDERED: cefTRIAXone 1 gm 1 GM/100 ML BAG IVPB ONE (07:15)
[2018-06-20] MEDS ORDERED: Propofol 10 mg/ml Inj (20 ML) ONE (08:02)
[2018-06-20] MEDS ORDERED: Midazolam 2 MG/2 ML VIAL ONE (08:02)
[2018-06-20] MEDS ORDERED: ePHEDrine 50 mg/ml Inj ONE (08:44)
--- NOTE | 2018-06-20 09:24 | PCM.SURG1 ---
Surgeon's Initial Post Op Note - Surgeon's Notes Surgeon: Mario Oseguera Production Quality Analyst: none Type of Anesthesia: General LMA Pre-Operative Diagnosis: Bladder tumor Operative Findings: same Post-Operative Diagnosis: same Operation Performed: cysto. bilat rtg pyelogram. bladder bx's and fulg. TUR- BT. EUA Specimen/Specimens Removed: urine. bladder bx's Estimated Blood Loss: EBL {In ML}: 0 Blood Products Given: N/A Post-Op Condition: Good Date of Surgery/Procedure: 06/20/18 Time of Surgery/Procedure: 09:00
[2018-06-20] MEDS ORDERED: Lactated Ringer's 1,000 ML IV SCH (09:30)
[2018-06-20] MEDS: HYDROmorphone 0.5 mg/0.5 ml ISec IVP PRN ×3 (09:40→10:44)
[2018-06-20] MEDS ORDERED: Lactated Ringer's 1,000 ML IV ONE (10:40)
[2018-06-20 12:33] VITALS: RESP 20
[2018-06-20] MEDS ORDERED: Sodium Chloride 0.9% 1,000 ML IV SCH (17:15)
[2018-06-20] MEDS: Oxycodone/Acetaminophen 5/325 mg Tab PO PRN (17:23)
[2018-06-20] MEDS: Pantoprazole 40 mg EC Tab PO SCH (17:23)
[2018-06-20 18:04] LABS: BASO % 0.4 % (0.0-2.0); EOS # 0.1 K/uL (0.0-0.7); EOS % 2.2 % (0.0-4.0); HEMOGLOBIN 11.5 g/dL (11.0-16.0); LYMPH # 1.7 K/uL (1.0-4.3); MEAN CELL VOLUME 93.1 fL (81.0-99.0); MEAN CORPUSCULAR HEMOGLOBIN 30.7 pg (27.0-31.0); MONO # 0.4 K/uL (0.0-0.8); MONO % 7.8 % (0.0-10.0); NEUT # 2.5 K/uL (1.8-7.0); NEUT % 53.6 % (50.0-75.0); RBC 3.74 Mil/uL (3.80-5.20); RED CELL DISTRIBUTION WIDTH 14.2 % (11.5-14.5); WHITE BLOOD COUNT 4.6 K/uL (4.8-10.8)
[2018-06-20 18:12] LABS: BLOOD UREA NITROGEN 14 mg/dL (7-17); CALCIUM 8.9 mg/dl (8.6-10.4); GFR NON-AFRICAN AMERICAN > 60
[2018-06-20 18:23] LABS: SQUAMOUS EPITHIAL < 1 /hpf (0-5); URINE BACTERIA RARE (<OCC); URINE BILIRUBIN NEGATIVE (NEGATIVE); URINE BLOOD 3+ (NEGATIVE); URINE CLARITY Hazy (Clear); URINE COLOR Yellow (YELLOW); URINE GLUCOSE (UA) NORMAL (Normal); URINE LEUKOCYTE ESTERASE 2+ Leu/uL (Negative); URINE PROTEIN 2+ mg/dL (NEGATIVE); URINE UROBILINOGEN NORMAL mg/dL (0.2-1.0)
[2018-06-20] MEDS: (Novolin R) Insulin Human Regular 100 units/ml vial SC SCH (21:19)
[2018-06-20] MEDS ORDERED: ZOLPIDEM TARTRATE 10 MG PO SCH (22:00)
[2018-06-21] MEDS: Oxycodone/Acetaminophen 5/325 mg Tab PO PRN ×2 (04:15→10:36)
[2018-06-21] MEDS: (Novolin R) Insulin Human Regular 100 units/ml vial SC SCH ×2 (07:44→11:49)
[2018-06-21 09:06] VITALS: BP 114/70; PULSE 50; TEMP 98.9; O2SAT 96
[2018-06-21] MEDS ORDERED: cefTRIAXone IV 1 gm in Dextros 50 ML IVPB SCH (10:00)
--- NOTE | 2018-06-21 10:05 | CP.PCM.PN ---
Subjective - Date & Time of Evaluation Date of Evaluation: 06/20/18 Time of Evaluation: 16:00 - Subjective Subjective: case discussed with Dr Oseguera s/p cysto. bilat rtg pyelogram, bladder bx's and fulg, TUR-BT, EUA no complication ROS no chest pain, no sob PMH Bladder ca, HTN, T2dm, Lipid disorder FHx strong family hx of T2dm, HTN, Lipid disorder Soc Hx no smoking, no dringking, no illicit drug use Objective - Vital Signs/Intake and Output Vital Signs (last 24 hours): Temp Pulse Resp BP Pulse Ox 98.9 F 50 L 20 114/70 96 06/21/18 09:02 06/21/18 09:02 06/21/18 09:02 06/21/18 09:02 06/21/18 09:02 Intake and Output: 06/21/18 06/21/18 06:59 18:59 Intake Total 940 940 Output Total 450 600 Balance 490 340 - Medications Medications: Current Medications Sodium Chloride (Sodium Chloride 0.9%) 1,000 mls @ 80 mls/hr IV .[id number] [facility] Stop: 06/22/18 17:16 Last Admin: 06/20/18 17:26 Dose: 80 mls/hr Ceftriaxone Sodium (Rocephin Iv 1 Gm Duplex) 50 mls @ 100 mls/hr IVPB DAILY [facility]; Protocol Insulin Human Regular (Novolin R) 0 unit SC ACHS [facility]; Protocol Last Admin: 06/21/18 07:44 Dose: Not Given Oxybutynin Chloride (Ditropan Tab) 5 mg PO BID [facility] Last Admin: 06/20/18 20:38 Dose: 5 mg Oxycodone/Acetaminophen (Percocet 5/325 Mg Tab) 1 tab PO Q6H PRN PRN Reason: Pain, severe (8-10) Stop: 06/23/18 17:04 Last Admin: 06/21/18 04:15 Dose: 1 tab Pantoprazole Sodium (Protonix Ec Tab) 40 mg PO DAILY [facility] Last Admin: 06/20/18 17:23 Dose: 40 mg Zolpidem Tartrate (Ambien) 5 mg PO HS PRN PRN Reason: Insomnia Last Admin: 06/20/18 22:13 Dose: 5 mg - Labs Labs: 06/20/18 17:49 06/20/18 17:49 - Constitutional Appears: Non-toxic - Head Exam Head Exam: NORMAL INSPECTION - Eye Exam Eye Exam: absent: Scleral icterus - ENT Exam ENT Exam: Mucous Membranes Moist - Neck Exam Neck Exam: Full ROM - Respiratory Exam Respiratory Exam: NORMAL BREATHING PATTERN - Cardiovascular Exam Cardiovascular Exam: REGULAR RHYTHM - GI/Abdominal Exam GI & Abdominal Exam: Soft - Extremities Exam Extremities Exam: absent: Pedal Edema Assessment and Plan - Assessment and Plan (Free Text) Assessment: Bladder ca Plan: Resume meds Pain meds prn
[2018-06-21] MEDS: Pantoprazole 40 mg EC Tab PO SCH (10:36)
--- NOTE | 2018-06-21 15:29 | CP.PCM.PN ---
Subjective - Date & Time of Evaluation Date of Evaluation: 06/21/18 Time of Evaluation: 10:00 - Subjective Subjective: doing well hemodynamically stable ok for DC from /cardiac standpoint Will see in the office in 5 days Objective - Vital Signs/Intake and Output Vital Signs (last 24 hours): Temp Pulse Resp BP Pulse Ox 98.9 F 50 L 20 114/70 96 06/21/18 09:02 06/21/18 09:02 06/21/18 09:02 06/21/18 09:02 06/21/18 09:02 Intake and Output: 06/21/18 06/21/18 06:59 18:59 Intake Total 940 940 Output Total 450 600 Balance 490 340 - Labs Labs: 06/20/18 17:49 06/20/18 17:49 - Constitutional Appears: Non-toxic - Eye Exam Eye Exam: absent: Scleral icterus - Neck Exam Neck Exam: Full ROM - Respiratory Exam Respiratory Exam: absent: Decreased Breath Sounds - Cardiovascular Exam Cardiovascular Exam: REGULAR RHYTHM - GI/Abdominal Exam GI & Abdominal Exam: Soft - Extremities Exam Extremities Exam: absent: Pedal Edema - Neurological Exam Neurological Exam: Alert Assessment and Plan - Assessment and Plan (Free Text) Assessment: Bladder ca HTN Plan: Ok for DC resume home meds Office f/u in 3-5 days
--- NOTE | 2018-06-21 15:33 | CP.PCM.DIS ---
Provider - Provider Date of Admission: 06/20/18 10:23 Attending physician: Woodrow Solano MD Primary care physician: Woodrow Solano MD Time Spent in preparation of Discharge (in minutes): 35 Diagnosis - Discharge Diagnosis (1) Hypertension Status: Acute (2) Bladder cancer Status: Acute (3) Diabetes mellitus Status: Acute Hospital Course - Lab Results Lab Results: Most Recent Lab Values WBC 4.6 K/uL (4.8-10.8) L 06/20/18 17:49 RBC 3.74 Mil/uL (3.80-5.20) L 06/20/18 17:49 Hgb 11.5 g/dL (11.0-16.0) 06/20/18 17:49 Hct 34.8 % (34.0-47.0) 06/20/18 17:49 MCV 93.1 fL (81.0-99.0) 06/20/18 17:49 MCH 30.7 pg (27.0-31.0) 06/20/18 17:49 MCHC 33.0 g/dL (33.0-37.0) 06/20/18 17:49 RDW 14.2 % (11.5-14.5) 06/20/18 17:49 Plt Count 202 K/uL (130-400) 06/20/18 17:49 MPV 9.0 fL (7.2-11.7) 06/20/18 17:49 Neut % (Auto) 53.6 % (50.0-75.0) 06/20/18 17:49 Lymph % (Auto) 36.0 % (20.0-40.0) 06/20/18 17:49 [place] % (Auto) 7.8 % (0.0-10.0) 06/20/18 17:49 Eos % (Auto) 2.2 % (0.0-4.0) 06/20/18 17:49 Baso % (Auto) 0.4 % (0.0-2.0) 06/20/18 17:49 Neut # (Auto) 2.5 K/uL (1.8-7.0) 06/20/18 17:49 Lymph # (Auto) 1.7 K/uL (1.0-4.3) 06/20/18 17:49 [place] # (Auto) 0.4 K/uL (0.0-0.8) 06/20/18 17:49 Eos # (Auto) 0.1 K/uL (0.0-0.7) 06/20/18 17:49 Baso # (Auto) 0.0 K/uL (0.0-0.2) 06/20/18 17:49 Sodium 138 mmol/L (132-148) 06/20/18 17:49 Potassium 3.9 mmol/L (3.6-5.2) 06/20/18 17:49 Chloride 104 mmol/L (98-107) 06/20/18 17:49 Carbon Dioxide 28 mmol/L (22-30) 06/20/18 17:49 Anion Gap 10 (10-20) 06/20/18 17:49 BUN 14 mg/dL (7-17) 06/20/18 17:49 Creatinine 0.7 mg/dL (0.7-1.2) 06/20/18 17:49 Est GFR ( Amer) > 60 06/20/18 17:49 Est GFR (Non-Af Amer) > 60 06/20/18 17:49 POC Glucose (mg/dL) 120 mg/dL (65-110) H 06/21/18 11:11 Random Glucose 115 mg/dL (65-105) H D 06/20/18 17:49 Calcium 8.9 mg/dl (8.6-10.4) 06/20/18 17:49 Urine Color Yellow (YELLOW) 06/20/18 18:00 Urine Clarity Hazy (Clear) 06/20/18 18:00 Urine pH 6.0 (5.0-8.0) 06/20/18 18:00 Ur Specific [place] 1.018 (1.003-1.030) 06/20/18 18:00 Urine Protein 2+ mg/dL (NEGATIVE) H 06/20/18 18:00 Urine Glucose (UA) Normal mg/dL (Normal) 06/20/18 18:00 Urine Ketones Negative mg/dL (NEGATIVE) 06/20/18 18:00 Urine Blood 3+ (NEGATIVE) H 06/20/18 18:00 Urine Nitrate Negative (NEGATIVE) 06/20/18 18:00 Urine Bilirubin Negative (NEGATIVE) 06/20/18 18:00 Urine Urobilinogen Normal mg/dL (0.2-1.0) 06/20/18 18:00 Ur Leukocyte Esterase 2+ [place]/uL (Negative) H 06/20/18 18:00 Urine WBC (Auto) 41 /hpf (0-5) H 06/20/18 18:00 Urine RBC (Auto) 451 /hpf (0-3) H 06/20/18 18:00 Ur Squamous Epith Cells < 1 /hpf (0-5) 06/20/18 18:00 Urine Bacteria Rare (<OCC) 06/20/18 18:00 - Hospital Course Hospital Course: Pt was admitted and underwent cysto, bilat rtg pyelogram, bladder bx's and fulg, TUR-BT, EUA without complication. Post op was uneventful. - Date & Time of H&P Date of H&P: 06/20/18 Time of H&P: 10:00 Discharge Exam - Head Exam Head Exam: NORMAL INSPECTION - Eye Exam Eye Exam: absent: Scleral icterus - ENT Exam ENT Exam: Mucous Membranes Moist - Neck Exam Neck exam: Full Rom - Respiratory Exam Respiratory Exam: NORMAL BREATHING PATTERN - Cardiovascular Exam Cardiovascular Exam: REGULAR RHYTHM - GI/Abdominal Exam GI & Abdominal Exam: Soft - Extremities Exam Extremities exam: pedal edema - Neurological Exam Neurological exam: Alert Discharge Plan - Discharge Medications Prescriptions: Doxycycline Hyclate [Doryx] 100 mg PO BID 7 Days cap - Follow Up Plan Condition: GOOD Disposition: HOME/ ROUTINE Instructions: How to Care for Your Jones Catheter, Female, Bladder Cancer (DC), Jones Catheter, Female, Doxycycline Additional Instructions: FOLLOW UP WITH PMD IN HIS OFFICE -----CALL FOR APPOINTMENT FOLLOW UP WITH DR MILAGROS OSEGUERA IN HIS OFFICE CONTINUE HOME MED NEW PRESCRIPTION GIVEN BY DR OSEGUERA, TAKE MEDICATION PRESCRIBED. PT TO BE DISCHARGED WITH JONES LEG BAG, EMPTY LEG BAG NEEDED. CALL DR. OSEGUERA FOR APPOINTMENT FOR CATHETER REMOVAL, ACTIVITY TOLERATED CALL DR SOLANO OR DR OSEGUERA OR GO TO THE EMERGENCY ROOM IF SYMPTOM RETURN OR WORSENING Referrals: Woodrow Solano MD [Staff Provider] - Milagros Oseguera MD [Staff Provider] -
--- NOTE | 2018-06-22 21:48 | OP ---
PROCEDURE DATE: 06/20/2018 PREOPERATIVE DIAGNOSES: Bladder tumor. History of high-grade bladder cancer. POSTOPERATIVE DIAGNOSIS: Abnormal bladder mucosa. PROCEDURES: Cystoscopy. Bilateral retrograde pyelogram. Exam under anesthesia. Multiple bladder biopsies and fulguration. Transurethral resection of bladder tumor. SURGEON: Milagros Oseguera MD DESCRIPTION OF PROCEDURE: The patient received perioperative antibiotics. The patient was placed in the lithotomy position. The genitalia were prepped and draped sterile. Anesthesia was provided by the anesthesiologist. A 22-Lux[place]bourgish cystoscope sheath was introduced with obturator. Urethra and bladder were inspected with 30-degree lens. FINDINGS: The urethra was normal. There was no bladder neck contraction. There were no mucosal lesions within the urethra. The bladder demonstrated mild bladder trabeculation. There were multiple areas of mild focal erythema located on the posterior wall. These areas were biopsied using cold cup biopsy forceps. Fulguration was performed with Ball electrode and electrocautery. The ureteral orifice was normal in position and shape. There was an abnormal mucosa located on the right lateral wall of the bladder. This mucosa was somewhat encrusted and somewhat puckering. There were no typical raised papillary bladder tumors. Occlusive tip retrograde ureteral pyelogram was performed. Iodinated contrast dye was instilled via cone-tip catheter into each ureteral orifice. The ureters and the kidneys were viewed sequentially. FINDINGS: There was no evidence of filling defect or obstruction within the ureters or collecting systems bilaterally. Post drainage films were subsequently obtained. There was no evidence of obstruction. There was good drainage from both renal units. The cystoscope was easily removed. A 26-L[place]bourgish continuous flow resectoscope sheath was introduced with obturator. The resectoscope was inserted. The area of the abnormal bladder tissue was resected. Wide and deep resection was performed. A separate resection of the base of the tumor was performed as well. The specimens were individually labelled and sent for pathologic examination. Hemostasis was achieved using electrocautery. The bladder was reinspected. Hemostasis was completed. There were no other lesions within the bladder. The resectoscope and sheath were removed. Hugo catheter was inserted. Bladder drainage was clear. Examination under anesthesia/bimanual examination was performed. There was no abnormal pelvic mass fixation or induration. The bladder was mobile and palpable. There was no adnexal mass. The patient was returned to the supine position. The patient tolerated the procedure without complications. The patient was transferred to the recovery room in satisfactory condition. Milagros Oseguera MD cc: Woodrow Buenrostro MD
--- NOTE | 2018-06-23 16:18 | RAD ---
Date of service: 06/20/2018 HISTORY: BLADDER CA. COMPARISON: CT abdomen and pelvis without IV contrast performed 05/12/18 TECHNIQUE: 1 view obtained. FINDINGS: BOWEL: Nonobstructive bowel gas pattern. Moderate constipation. BONES: Degenerative changes. OTHER FINDINGS: None. IMPRESSION: No acute findings identified.
--- NOTE | 2018-06-24 12:21 | RAD ---
Date of service: 06/20/2018 PROCEDURE: Intraoperative Fluoroscopy. HISTORY: BLADDER CA. FINDINGS: Fluoroscopic assistance was provided. Fluoroscopy time = 7.5 sec. Radiation dose = 0.19089 mGy-cm. Please refer to the operative report from Dr. LAGUNAS, [id number].
== END 2018-06-21 13:35 | disposition home or self-care (01) ==
LOC: C.SDS 06:26 → INTOOBSV 10:23 → C.9S 10:23 → C.3T 11:18
PROVIDERS: ADMIT Internal Medicine; ATTEND Internal Medicine
DX: N30.20 Other chronic cystitis without hematuria (principal); N30.00 Acute cystitis without hematuria; I10 Essential (primary) hypertension; E11.9 Type 2 diabetes mellitus without complications; N32.89 Other specified disorders of bladder; Z82.49 Family history of ischemic heart disease and other diseases of the circulatory system; Z83.3 Family history of diabetes mellitus; Z85.51 Personal history of malignant neoplasm of bladder
CPT/HCPCS: 36415; 52204; 52234; 74018; 80048; 81001; 82948; 85025; 87086; 88104; 88305; 97116; 97162; C1758; G0378; G8978; G8979; J0696; J1170; J2405; J7030; J7120